=== PATIENT | female | born 1995 | race Caucasian/White ===

== ENCOUNTER 2021-05-19 10:31 | Outpatient (CLI) | payer OTHER, SELFPAY ==
--- NOTE | ~2021-05-19 | US_ITS ---
EXAMINATION: US thyroid DATE: 05/19/2021 10:52 INDICATION: Elevated TSH level. TECHNIQUE: Multiple ultrasound images of the thyroid were obtained. COMPARISON: None. FINDINGS: The right thyroid lobe measures 4.6 x 1.3 x 1.7 cm. The left thyroid lobe measures 4.9 x 1.3 x 1.3 c m. Third isthmus measures 3 mm in thickness. No discrete nodules identified. There is normal echotext ure, echogenicity and vascular flow throughout the thyroid gland. IMPRESSION: 1. Normal thyroid ultrasound. Reviewed, dictated and finalized at location A.
== END 2021-05-19 10:32 | disposition home or self-care (01) ==
PROVIDERS: PCP Emergency Medicine; Visit Provider Emergency Medicine
DX: R79.89 Other specified abnormal findings of blood chemistry (principal)
CPT/HCPCS: 76536

== ENCOUNTER → 2021-07-21 02:58 | Outpatient (CLI) | payer OTHER, SELFPAY ==
[2021-07-21 19:47] LABS: SARS-CoV-2 RNA PCR Negative
== END ==
PROVIDERS: PCP Emergency Medicine; Visit Provider Emergency Medicine
DX: Z20.822 Contact with and (suspected) exposure to COVID-19 (principal)
CPT/HCPCS: C9803; U0003; U0005

== ENCOUNTER 2023-10-22 11:08 | Emergency (ER) | payer OTHER, SELFPAY ==
--- NOTE | ~2023-10-22 | CT_ITS ---
EXAMINATION: CT cervical spine wo con DATE: 10/22/2023 13:07 INDICATION: Neck pain after fall TECHNIQUE: Computed tomography (CT) of the cervical spine was performed without intravenous contrast. The dose-length product was 335 mGy-cm. Automated exposure control and iterative reconstruction [employer] logo were employed. COMPARISON: None FINDINGS: Craniovertebral junction is normal. Straightening of cervical lordosis which may be due to muscle spasm or patient positioning. Vertebral body heights are maintained. No evidence for perched f acet. Craniovertebral junction is normal. Spinous processes are normal. No significant paraspinal sof t tissue abnormality. Lateral masses are normally aligned. IMPRESSION: 1. No acute abnormality of the cervical spine. Reviewed, dictated and finalized at location B.
--- NOTE | ~2023-10-22 | CT_ITS ---
EXAMINATION: CT brain wo con DATE: 10/22/2023 13:06 INDICATION: Head injury. TECHNIQUE: Computed tomography (CT) of the head was performed without intravenous contrast. The mA wa s adjusted according to patient size. Iterative reconstruction technique was employed. The dose-lengt h product was 529.67 mGy-cm. COMPARISON: None FINDINGS: There is no intracranial hemorrhage, acute infarction, or abnormal intracranial mass lesion . The ventricles are normal in size. The paranasal sinuses are clear. The mastoid air cells are don l. IMPRESSION: 1. Normal brain. Reviewed, dictated and finalized at location E. IMPRESSION: 1. Normal brain.
--- NOTE | ~2023-10-22 | CT_ITS ---
EXAMINATION: CT thoracic spine wo con DATE: 10/22/2023 13:07 INDICATION: Status post fall. Back pain. TECHNIQUE: Computed tomography (CT) of the was performed without intravenous contrast. The dose-lengt h product was 689.60 mGy-cm. Automated exposure control and iterative reconstruction technique were e mployed. COMPARISON: None FINDINGS: There is mild superior endplate compression deformities of T3 and T4, likely chronic. Mild dextroscoliosis. No paraspinal soft tissue abnormality. There is a hiatal hernia. Thyroid gland is unremarkable. No si gnificant pleural or pericardial effusion. Surrounding osseous structures are unremarkable. IMPRESSION: 1. Mild superior endplate compression deformities of T3 and T4, most likely chronic. Reviewed, dictated and finalized at location B. IMPRESSION: 1. Mild superior endplate compression deformities of T3 and T4, most likely chr onic.
[2023-10-22 11:09] VITALS: BP 142/83; PULSE 87; RESP 16; TEMP 36.4; O2SAT 100
--- NOTE | 2023-10-22 12:37 | ED.GENADULT ---
HPI - General Adult General Chief complaint: Fall Stated complaint: fell ice skating yesterday GLF-back/neck/head pain Time Seen by Provider: 10/22/23 11:49 Source: patient Mode of arrival: ambulatory Limitations: no limitations History of Present Illness [facility] narrative: this is a 28-year-old female who presents to the ED with chief complaint of a fall that occurred yesterday. Patient reports that she was ice skating and accidentally fell flat on her back. She reports pain to the mid to upper back. Also reports headache and neck pain following the injury. Denies numbness, weakness, further sites of pain or injury. Related Data Home Medications Medication Instructions Recorded Confirmed norgestimate 0.18 mg/0.215 mg/0.25 1 tablet PO DAILY 01/12/21 09/18/23 mg-ethinyl estradiol 25 mcg tablet sertraline 50 mg tablet 50 mg PO DAILY 09/18/23 Allergies Allergy/AdvReac Type Severity Reaction Status Date / Time meloxicam Allergy Unknown Unknown Verified 10/22/23 11:21 Review of Systems Review of Systems: All systems as dictated in [facility] Past Medical History Medical History Blurred vision Surgical History Surgical History History of tonsillectomy (~2005) Family History Family History Mother TIA (transient ischemic attack) Cerebrovascular accident Sibling Heart defect Social History Social History (Updated 09/18/23 @ 13:14 by Kalpana Good MA) Social History: Patient drinks caffeine daily Smoking status: Never smoker Second hand tobacco smoke exposure: No Alcohol intake: current Drinks per week: 1 Alcohol use details: Patient drinks once weekly. 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 HEAD: Normocephalic, atraumatic. EYES: PERRLA and EOMI. ENT: Nares clear, no rhinorrhea or epistaxis. Mucous membranes moist. Oropharynx without tonsillar hypertrophy exudate or other lesions. NECK: Supple. No adenopathy or masses. CHEST: No respiratory distress. Clear to auscultation. No wheezes rales or rhonchi HEART: Regular rate and rhythm. No murmur heard. Normal peripheral pulses. ABDOMEN: Soft, nontender, nondistended, normal active bowel sounds. MSK: Mild thoracic and cervical spine tenderness present. No step-offs or deformities. SKIN: Warm, dry, no rash. NEURO: Alert and oriented x3. No focal deficits. 5 out of 5 strength and sensation in the upper and lower extremities. PSYCH: Normal mood and affect. Course Vital Signs Vital signs: Vital Signs Temperature 97.6 F 10/22/23 11:09 Pulse Rate 87 10/22/23 11:09 Respiratory Rate 16 10/22/23 11:09 Blood Pressure 142/83 H 10/22/23 11:09 Pulse Oximetry 100 10/22/23 11:09 Oxygen Delivery Room Air 10/22/23 11:09 Temperature 97.6 F 10/22/23 11:09 Pulse Rate 87 10/22/23 11:09 Respiratory Rate 16 10/22/23 11:09 Blood Pressure 142/83 H 10/22/23 11:09 Pulse Oximetry 100 10/22/23 11:09 Oxygen Delivery Room Air 10/22/23 11:09 Medical Decision Ma
== END 2023-10-22 13:57 | disposition home or self-care (01) ==
PROVIDERS: Emergency Provider Physician Assistant; PCP Emergency Medicine
DX: S29.9XXA Unspecified injury of thorax, initial encounter (principal); S19.9XXA Unspecified injury of neck, initial encounter; R51.9 Headache, unspecified; V00.211A Fall from ice-skates, initial encounter; Y93.21 Activity, ice skating
CPT/HCPCS: 70450; 72125; 72128; 99284